=== PATIENT | male | born 1975 | race Caucasian/White ===

== ENCOUNTER 2021-12-09 11:54 | Observation (INO) | payer OTHER ==
[2021-12-09] MEDS ORDERED: ONDANSETRON 4 MG/2 ML VIAL ONE (12:24)
[2021-12-09 12:27] VITALS: BMI 30.3
[2021-12-09] MEDS ORDERED: SODIUM CHLORIDE 0.9% 500 ML INFUS.BAG IV ONE (13:48)
[2021-12-09 14:03] LABS: BASO % 0.5 % (0-2.0); EOS % 0.5 % (0-4.5); HEMATOCRIT 44.6 % (35.4-49); HEMOGLOBIN 14.6 GM/dL (11.7-16.9); LYMPH % 21.3 % (8-40); MCH 25.2 pg (25.7-33.7); MCHC 32.8 g/dl (32.0-35.9); MEAN CELL VOLUME 76.7 fl (80-96); MEAN PLT VOLUME 7.7 fl (7.5-11.1); MONO % 8.3 % (3.8-10.2); NEUT % 69.4 % (42.8-82.8); PLATELET COUNT 245 10^3/uL (134-434); RBC 5.82 M/mm3 (4.00-5.60); RDW 15.7 % (11.9-15.9); WHITE BLOOD COUNT 10.9 K/mm3 (4.0-10.0)
[2021-12-09 14:09] LABS: INR 1.03 (0.83-1.09); PROTHROMBIN TIME (PATIENT) 11.8 SEC (9.7-13.0)
[2021-12-09 14:11] LABS: ACTIVATED PTT 27.3 SECONDS (25.2-36.5)
[2021-12-09 14:25] LABS: CALCIUM 8.4 mg/dL (8.5-10.1)
[2021-12-09 14:27] LABS: ALBUMIN 3.2 g/dl (3.4-5.0); BLOOD UREA NITROGEN 14.6 mg/dL (7-18)
[2021-12-09 14:29] LABS: CREATININE 0.8 mg/dL (0.55-1.3)
[2021-12-09 14:30] LABS: BILIRUBIN,TOTAL 0.3 mg/dL (0.2-1)
[2021-12-09] MEDS ORDERED: ACETAMINOPHEN 325 MG TABLET (FP) PO PRN (18:33)
[2021-12-10 09:17] LABS: BASO % 0.5 % (0-2.0); HEMOGLOBIN 13.9 GM/dL (11.7-16.9); LYMPH % 30.3 % (8-40); MCH 24.2 pg (25.7-33.7); MCHC 31.6 g/dl (32.0-35.9); MEAN CELL VOLUME 76.6 fl (80-96); MEAN PLT VOLUME 7.9 fl (7.5-11.1); MONO % 8.8 % (3.8-10.2); NEUT % 59.4 % (42.8-82.8); PLATELET COUNT 250 10^3/uL (134-434); RBC 5.75 M/mm3 (4.00-5.60); RDW 16.3 % (11.9-15.9); WHITE BLOOD COUNT 11.3 K/mm3 (4.0-10.0)
[2021-12-10] MEDS: ENOXAPARIN NA (PORCINE) 40 MG/0.4 ML DISP.SYRIN SQ SCH (09:34)
[2021-12-10] MEDS: LOSARTAN 50MG/HCTZ 12.5MG 1 TAB PO SCH (09:34)
[2021-12-10 09:46] LABS: BLOOD UREA NITROGEN 12.4 mg/dL (7-18)
[2021-12-10 09:48] LABS: CALCIUM 8.2 mg/dL (8.5-10.1)
[2021-12-10 09:51] LABS: CREATININE 0.7 mg/dL (0.55-1.3)
[2021-12-10 09:53] LABS: BILIRUBIN,TOTAL 0.4 mg/dL (0.2-1); TOT PROT 5.4 g/dl (6.4-8.2)
[2021-12-10] MEDS: amLODIPine BESYLATE 10 MG TABLET (FP) PO SCH (14:52)
[2021-12-10] MEDS: ASPIRIN 81 MG CHEWABLE TABLETS PO SCH (14:52)
[2021-12-10] MEDS ORDERED: ROSUVASTATIN CA 20 MG TABLET PO SCH (22:00)
[2021-12-11] MEDS ORDERED: hydrALAZINE HCL 20 MG/ML VIAL IVPUSH ONE (01:06)
[2021-12-11] MEDS: amLODIPine BESYLATE 10 MG TABLET (FP) PO SCH (09:15)
[2021-12-11] MEDS: ENOXAPARIN NA (PORCINE) 40 MG/0.4 ML DISP.SYRIN SQ SCH (09:15)
[2021-12-11] MEDS: LOSARTAN 50MG/HCTZ 12.5MG 1 TAB PO SCH (09:15)
[2021-12-11] MEDS: ASPIRIN 81 MG CHEWABLE TABLETS PO SCH (09:15)
[2021-12-11 11:28] VITALS: RESP 18; TEMP 97.7
[2021-12-14 11:27] VITALS: BP 148/87; PULSE 77
[2021-12-15 10:08] LABS: RENIN ACTIVITY(PRA) 1.913 ng/mL/hr (0.167-5.380)
== END 2021-12-11 14:42 | disposition left against medical advice (07) ==
LOC: JER 11:54 → JERBED 18:06 → J4S 22:33
PROVIDERS: ADMIT Internal Medicine
PROC: 3E023GC Introduction of Other Therapeutic Substance into Muscle, Percutaneous Approach (ICD-10-PCS; principal; 2021-12-09)
PROC: 3E033GC Introduction of Other Therapeutic Substance into Peripheral Vein, Percutaneous Approach (ICD-10-PCS; 2021-12-09)
PROC: 3E0337Z Introduction of Electrolytic and Water Balance Substance into Peripheral Vein, Percutaneous Approach (ICD-10-PCS; 2021-12-09)
DX: F12.929 Cannabis use, unspecified with intoxication, unspecified (principal); R42 Dizziness and giddiness; E66.8 Other obesity; Z68.30 Body mass index [BMI] 30.0-30.9, adult; F17.210 Nicotine dependence, cigarettes, uncomplicated
CPT/HCPCS: 0241U-QW; 36415; 70450-TC; 71045-TC-FY; 80053; 80061; 82088; 82962; 83880; 84244; 84439; 84443; 84484; 85025; 85610; 85730; 93005; 93010; 96372; 96374; 99285-25; G0378